=== PATIENT | female | born 1980 | race Caucasian/White ===

== ENCOUNTER 2019-06-28 08:07 | Outpatient (CLI) | payer OTHER ==
[2019-06-28 08:33] LABS: BASOPHILS # (AUTO) 0.1 10^3/uL (0.0-0.1); BASOPHILS % (AUTO) 0.6 %; EOSINOPHILS # (AUTO) 0.2 10^3/uL (0.0-0.7); EOSINOPHILS % (AUTO) 2.6 %; HGB - HEMOGLOBIN 13.9 g/dL (12.0-16.0); LYMPHOCYTES # (AUTO) 3.1 10^3/uL (1.5-3.5); LYMPHOCYTES % (AUTO) 34.2 %; MEAN CORPUSCULAR HEMOGLOBIN 30.3 pg (27.0-31.0); MEAN CORPUSCULAR HGB CONC 33.3 g/dL (32.0-36.0); MEAN CORPUSCULAR VOLUME 91.3 fL (81.0-99.0); MONOCYTES # (AUTO) 0.6 10^3/uL (0.0-1.0); MONOCYTES % (AUTO) 6.2 %; NEUTROPHILS % (AUTO) 55.7 %; PLT - PLATELET COUNT 344 10^3/uL (130-450); RED BLOOD COUNT 4.58 10^6/uL (4.20-5.40); RED CELL DISTRIBUTION WIDTH 12.3 % (12.0-15.0)
[2019-06-28 08:45] LABS: HCG UR QUAL NEGATIVE
== END 2019-06-28 08:08 | disposition home or self-care (01) ==
LOC: LAB 08:07
PROVIDERS: ATTEND Obstetrics & Gynecology
DX: N84.0 Polyp of corpus uteri (principal); Z01.812 Encounter for preprocedural laboratory examination
CPT/HCPCS: 36415; 81025; 85025; 86850; 86900; 86901

== ENCOUNTER 2019-06-29 07:25 | Day surgery (SDC) | payer OTHER ==
[2019-06-29] MEDS ORDERED: ACETAMINOPHEN 1,000 MG/100 ML 100 ML IV ONE ×2 (07:26→09:17)
[2019-06-29] MEDS ORDERED: fentaNYL 100 MCG/2 ML VIAL IVP ONE (07:26)
[2019-06-29] MEDS ORDERED: MIDAZOLAM 2 MG/2 ML VIAL IVP ONE (07:26)
[2019-06-29] MEDS ORDERED: PROPOFOL 200 MG/20 ML VIAL IVP ONE (07:26)
[2019-06-29] MEDS ORDERED: KETOROLAC 30 MG/ML VIAL IVP ONE (07:26)
[2019-06-29] MEDS ORDERED: DEXAMETHASONE 4 MG/ML VIAL IVP ONE (07:26)
[2019-06-29] MEDS ORDERED: LACTATED RINGERS 1,000 ML IV ONE (07:37)
--- NOTE | 2019-06-29 08:01 | ANESTHESIA ---
Pre-Anesthesia VS, & Labs - Diagnosis uterine polyp - Procedure myosure hysteroscopy, polypectomy Vital Signs: Temp Pulse Resp BP Pulse Ox 37 C 92 20 130/90 H 97 06/29/19 07:37 06/29/19 07:37 06/29/19 07:37 06/29/19 07:37 06/29/19 07:37 Height 5 ft 2.2 in Weight (kg) 84 kg - NPO >8 hours - Is Patient ?: No Home Medications and Allergies Home Medications: Ambulatory Orders ALPRAZolam [Alprazolam] 0.5 mg PO PRN 06/22/19 Amitriptyline [Elavil] 10 mg PO HS PRN 06/22/19 Cholecalciferol (Vitamin D3) [Vitamin D3] 1,000 unit PO 06/22/19 Desogestrel-Ethinyl Estradiol [Apri 28 Day Tablet] 1 each PO 06/22/19 Lisinopril 60 mg PO 06/22/19 Vitamin B Complex 1 each PO 06/22/19 ALPRAZolam [Alprazolam] 0.5 mg PO PRN 06/22/19 Amitriptyline [Elavil] 10 mg PO HS PRN 06/22/19 Calcium Carbonate [Tums (Calcium Carbonate 500mg)] 500 mg PO PRN 06/22/19 Cholecalciferol (Vitamin D3) [Vitamin D3] 1,000 unit PO 06/22/19 Desogestrel-Ethinyl Estradiol [Apri 28 Day Tablet] 1 each PO 06/22/19 Lisinopril 60 mg PO 06/22/19 Vitamin B Complex 1 each PO 06/22/19 Allergies/Adverse Reactions: Allergies Allergy/AdvReac Type Severity Reaction Status Date / Time adhesive tape Allergy Rash Verified 06/29/19 07:57 dill oil Allergy Itching Verified 06/22/19 14:46 Anes History & Medical History - Anesthetic History Anesthesia Complications: reports: No previous complications - Medical History Cardiovascular: reports: Hypertension Pulmonary: reports: None Gastrointestinal: reports: GERD Urinary: reports: Other Musculoskeletal: reports: None Endocrine/Autoimmune: reports: None Skin: reports: None - Surgical History General: Colonoscopy, EGD Eyes Ears Nose Throat (EENT): Rhinoplasty, Tonsil/Adenoidectomy Exam General: Alert Dental: WNL Mouth Opening: Greater than 4 Fingerbreadths Mallampati classification: I Respiratory: Lungs clear Cardiovascular: Regular rate, Normal S1, Normal S2 Plan Anesthesia Type: General Consent for Procedure(s) Verified and Reviewed: Yes Code Status: Attempt Resuscitation ASA classification: 2-Mild systemic disease Is this case an emergency?: No
[2019-06-29] MEDS ORDERED: LIDOCAINE-MPF 1% 30 ML VIAL ONE (09:11)
[2019-06-29] MEDS ORDERED: VASOPRESSIN 20 UNIT/ML VIAL ONE (09:11)
[2019-06-29] MEDS ORDERED: SILVER NITRATE APPLICATOR TOP ONE (09:52)
[2019-06-29] MEDS ORDERED: LIDOCAINE 1% 10 ML MDV SUBQ ONE (09:56)
[2019-06-29] MEDS ORDERED: HYDROmorphone 0.5 MG/0.5 ML SYRINGE IVP PRN (10:02)
[2019-06-29] MEDS ORDERED: ONDANSETRON 4 MG/2 ML VIAL IVP PRN (10:02)
[2019-06-29] MEDS ORDERED: oxyCODONE 5 MG TABLET PO PRN (10:02)
--- NOTE | 2019-06-29 10:07 | OPERATIVE REPORT ---
Operative Report - General Procedure Date: 06/29/19 Planned Procedure: diagnostic hysteroscopy, possible polypectomy, dilation and curettage Pre-Op Diagnosis: abnormal uterine bleeding, suspected polyp Procedure Performed: diagnostic hysteroscopy, dilation and curettage Post Op Diagnosis: abnormal uterine bleeding, no polyp identified - Procedure Note Primary Surgeon: Sujata Woodard Anesthesia Technique: General LMA Pathology: endometrial curettings IV Fluids (mL): 500 Estimated Blood Loss (mL): 5 Urine Output (mL): 0 Indications: abnormal uterine bleeding, polyp suspected on ultrasound Findings: Normal uterine cavity with some lush endometrium anteriorly but no identified mass or polyp. Scant tissue returned on curretting. Fluid deficit 225 mL Complications: none - Other Other Information/Narrative: After informed consent was assured, the patient was taken to the operating room where anesthesia was induced. Pt was placed in high dorsal lithotomy. An exam under anesthesia was performed which revealed a small anteverted uterus. The patient was prepped and draped in the usual sterile fashion. Hysteroscopy equipment was set up and white balanced. A surgical timeout was performed. A speculum was inserted into the vagina, and a tenaculum was placed on the anterior lip of the cervix. 1% lidocaine was used to perform a paracervical block with injection at 2, 4, 8 and 10 o'clock into the cervicovaginal junction. Hanks dilators were used to dilate the cervix up to 15 slovak. The hysteroscope light was turned on and fluids were run through. The hysteroscope was passed through the cervix into the endometrial cavity, which was gently distended with fluid. The cavity appeared smooth and regular, with normal bilateral ostia, no mass or defect. Endometrium was lush anteriorly but no polyp was seen. The hysteroscope was withdrawn. Fluid deficit noted at 225 mL. A small curette was inserted to the fundus and withdrawn along all surfaces of the endometrial cavity, returning scant tissue. The tenaculum was removed from the cervix; silver nitrate was applied to the tenaculum sites with good hemostasis observed. All instruments were removed from the vagina, and a repeat bimanual exam revealed a small firm uterus and no instruments in the vaginal vault. All counts were correct. The pt was taken to PACU in stable condition.
[2019-06-29 11:07] VITALS: BP 126/81
== END 2019-06-29 07:26 | disposition home or self-care (01) ==
LOC: SDS 07:25
PROVIDERS: ATTEND Obstetrics & Gynecology
PROC: 0UJD8ZZ Inspection of Uterus and Cervix, Via Natural or Artificial Opening Endoscopic (ICD-10-PCS; 2019-06-29)
PROC: 0UDB7ZZ Extraction of Endometrium, Via Natural or Artificial Opening (ICD-10-PCS; principal; 2019-06-29 08:30)
DX: N84.0 Polyp of corpus uteri (principal); N92.1 Excessive and frequent menstruation with irregular cycle; I10 Essential (primary) hypertension; Z79.899 Other long term (current) drug therapy
CPT/HCPCS: 85025

== ENCOUNTER 2019-12-03 13:22 | Emergency (ER) | payer OTHER ==
[2019-12-03 15:39] VITALS: BP 130/100
--- NOTE | 2019-12-03 15:57 | ED Physician Documentation ---
PD HPI WOUND RECHECK - Stated complaint Stated Complaint: L ARM SWELLING - Chief complaint Chief Complaint: Wound - Histroy obtained from History obtained from: Patient - History of Present Illness Location: Left Uppper Extremity (Bug bite 2 nights ago and now with a swollen area of pain on the left arm) Review of Systems Constitutional: reports: Reviewed and negative. denies: Fever, Chills Throat: reports: Reviewed and negative Cardiac: reports: Reviewed and negative PD PAST MEDICAL HISTORY - Past Medical History Cardiovascular: Hypertension Respiratory: None Endocrine/Autoimmune: None GI: GERD : Other HEENT: None Psych: None Musculoskeletal: None Derm: None - Past Surgical History General: Colonoscopy, EGD HEENT: Rhinoplasty, Tonsil/Adenoidectomy - Present Medications Home Medications: Ambulatory Orders Medication Instructions Recorded Confirmed ALPRAZolam [Alprazolam] 0.5 mg PO DAILY 06/22/19 06/29/19 Amitriptyline [Elavil] 10 mg PO HS PRN 06/22/19 06/22/19 Cholecalciferol (Vitamin D3) 2,000 unit PO DAILY 06/22/19 06/29/19 [Vitamin D3] Desogestrel-Ethinyl Estradiol 1 each PO DAILY 06/22/19 06/29/19 [Apri 28 Day Tablet] Vitamin B Complex 1 each PO DAILY 06/22/19 06/29/19 lisinopriL [Lisinopril] 60 mg PO DAILY 06/22/19 06/29/19 Cephalexin [Keflex] 500 mg PO Q6H #28 capsule 12/03/19 Triamcinolone 0.1% Oint [Kenalog 1 gm TOP BID #2 tube 12/03/19 0.1% Oint] - Allergies Allergies/Adverse Reactions: Allergies Allergy/AdvReac Type Severity Reaction Status Date / Time adhesive tape Allergy Rash Verified 12/03/19 13:29 dill oil Allergy Itching Verified 12/03/19 13:29 PD ED PE NORMAL - Vitals Vital signs reviewed: Yes - General General: Alert and oriented X 3, No acute distress - Extremities Extremities: Other (There is an area of cellulitis versus localized bug reaction to the medial antecubital fossa on the left arm measuring about 10 x 5 cm) - Neuro Neuro: Alert and oriented X 3, Normal speech Results - Vitals Vitals: Vital Signs - 24 hr 12/03/19 12/03/19 13:29 15:39 Temperature 37.4 C 37.1 C Heart Rate 110 H 113 H Respiratory 17 16 Rate Blood Pressure 149/95 H 130/100 H O2 Saturation 98 99 Oxygen O2 Source Room air Departure - Departure Disposition: 01 Home, Self Care Clinical Impression: Left arm cellulitis Condition: Good Record reviewed to determine appropriate education?: Yes Instructions: ED Infec Skin Cellulitis Prescriptions: Cephalexin [Keflex] 500 mg PO Q6H #28 capsule Triamcinolone 0.1% Oint [Kenalog 0.1% Oint] 1 gm TOP BID #2 tube Comments: Return if you develop a fever or not better in the next couple of days. Anytime for worsening symptoms.
== END 2019-12-03 15:59 | disposition home or self-care (01) ==
LOC: ED 13:22
DX: L03.114 Cellulitis of left upper limb (principal); I10 Essential (primary) hypertension
CPT/HCPCS: 99282; 99283

== ENCOUNTER 2020-04-17 09:54 | Outpatient (CLI) | payer OTHER ==
[2020-04-17 10:38] LABS: BASOPHILS # (AUTO) 0.1 10^3/uL (0.0-0.1); BASOPHILS % (AUTO) 0.6 %; EOSINOPHILS # (AUTO) 0.2 10^3/uL (0.0-0.7); EOSINOPHILS % (AUTO) 1.9 %; LYMPHOCYTES # (AUTO) 2.9 10^3/uL (1.5-3.5); LYMPHOCYTES % (AUTO) 30.8 %; MEAN CORPUSCULAR HEMOGLOBIN 29.7 pg (27.0-31.0); MEAN CORPUSCULAR HGB CONC 32.5 g/dL (32.0-36.0); MEAN CORPUSCULAR VOLUME 91.3 fL (81.0-99.0); MEAN PLATELET VOLUME 9.7 fL (7.9-10.8); MONOCYTES # (AUTO) 0.5 10^3/uL (0.0-1.0); MONOCYTES % (AUTO) 5.3 %; NEUTROPHILS # (AUTO) 5.7 10^3/uL (1.5-6.6); NEUTROPHILS % (AUTO) 60.9 %; PLT - PLATELET COUNT 337 10^3/uL (130-450); RED BLOOD COUNT 4.72 10^6/uL (4.20-5.40); RED CELL DISTRIBUTION WIDTH 12.2 % (12.0-15.0); WHITE BLOOD COUNT 9.3 x10^3/uL (4.8-10.8)
[2020-04-17 10:42] LABS: HCG UR QUAL NEGATIVE
== END 2020-04-17 09:55 | disposition home or self-care (01) ==
LOC: LAB 09:54
PROVIDERS: ATTEND Obstetrics & Gynecology
DX: Z01.818 Encounter for other preprocedural examination (principal); N84.0 Polyp of corpus uteri; N92.6 Irregular menstruation, unspecified; Z20.828 Contact with and (suspected) exposure to other viral communicable diseases
CPT/HCPCS: 36415; 81025; 85025

== ENCOUNTER 2020-04-20 06:12 | Day surgery (SDC) | payer OTHER ==
[2020-04-20] MEDS ORDERED: LACTATED RINGERS 1,000 ML IV ONE ×2 (06:27→10:58)
[2020-04-20] MEDS ORDERED: GABAPENTIN 400 MG CAPSULE ONE (06:30)
[2020-04-20] MEDS ORDERED: CELECOXIB 100 MG CAPSULE PO ONE (06:31)
[2020-04-20] MEDS ORDERED: CEFAZOLIN SODIUM IN 0.9 % NACL 2 GM/100 ML BAG IV ONE (06:31)
[2020-04-20] MEDS ORDERED: ACETAMINOPHEN 1,000 MG/100 ML 100 ML IV ONE ×2 (06:31→08:17)
[2020-04-20] MEDS ORDERED: PHENAZOPYRIDINE 100 MG TABLET PO ONE (06:34)
[2020-04-20 06:56] LABS: HCG UR QUAL NEGATIVE
--- NOTE | 2020-04-20 07:23 | ANESTHESIA ---
Pre-Anesthesia VS, & Labs - Diagnosis Endometrial polyp, irregular menses - Procedure LAVH, possible open Vital Signs: Temp Pulse Resp BP Pulse Ox 36.6 C 94 16 144/95 H 98 04/20/20 06:43 04/20/20 06:43 04/20/20 06:43 04/20/20 06:43 04/20/20 06:43 Height: 5 ft 2.5 in Weight (kg): 82.7 kg Body Mass Index: 32.8 BMI Classification: Obese - NPO >8 hours Last Fluid Intake: sips w/am meds - Is Patient ?: No - Lab Results Current Lab Results: Laboratory Tests 04/20/20 07:07: POC Whole Bld Glucose 90 Lab results reviewed: Yes Home Medications and Allergies Home Medications: Ambulatory Orders Cetirizine [ZyrTEC] 10 mg PO DAILY 04/19/20 Cyclobenzaprine [Flexeril] 10 mg PO TID PRN 04/19/20 Omeprazole 20 mg PO DAILY 04/19/20 SUMAtriptan succinate [Sumatriptan Succinate] 100 mg PO ONCE PRN 04/19/20 ALPRAZolam [Alprazolam] 0.5 mg PO DAILY PRN 06/22/19 Cholecalciferol (Vitamin D3) [Vitamin D3] 5,000 unit PO DAILY 06/22/19 Desogestrel-Ethinyl Estradiol [Apri 28 Day Tablet] 1 each PO DAILY 06/22/19 Vitamin B Complex 1 each PO DAILY 06/22/19 lisinopriL [Lisinopril] 60 mg PO DAILY 06/22/19 Cetirizine [ZyrTEC] 10 mg PO DAILY 04/19/20 Cyclobenzaprine [Flexeril] 10 mg PO TID PRN 04/19/20 Omeprazole 20 mg PO DAILY 04/19/20 SUMAtriptan succinate [Sumatriptan Succinate] 100 mg PO ONCE PRN 04/19/20 Allergies/Adverse Reactions: Allergies Allergy/AdvReac Type Severity Reaction Status Date / Time adhesive tape Allergy Rash Verified 04/20/20 06:52 dill oil Allergy Itching Verified 04/20/20 06:52 mosquito Allergy cellulitis, Uncoded 04/20/20 06:52 welts Anes History & Medical History - Anesthetic History Anesthesia Complications: reports: No previous complications Family history of Anesthesia Complications: Denies Family history of Malignant Hyperthermia: Denies - Medical History Cardiovascular: reports: Hypertension Pulmonary: reports: Asthma (as a child, resolved) Gastrointestinal: reports: GERD, Other Urinary: reports: None Musculoskeletal: reports: None Endocrine/Autoimmune: reports: None Skin: reports: None - Surgical History General: Colonoscopy, EGD, Other Eyes Ears Nose Throat (EENT): Rhinoplasty, Tonsil/Adenoidectomy Gynecologic: Dilation and currettage, Other Exam General: Alert, Oriented x3, Cooperative Dental: WNL Mouth Opening: Greater than 4 Fingerbreadths Neck Mobility: Normal Mallampati classification: I Thyromental Distance: greater than 6 cm Respiratory: Lungs clear, Normal breath sounds Cardiovascular: Regular rate Neurological: Normal speech Mental/Cognitive Status: Alert/Oriented X3, Normal for patient Cognitive Status: Within normal limits Plan Anesthesia Type: General, Transverse Abdominis Plane (TAP) Block (possible) Consent for Procedure(s) Verified and Reviewed: Yes Code Status: Attempt Resuscitation ASA classification: 2-Mild systemic disease Is this case an emergency?: No
[2020-04-20] MEDS ORDERED: LIDOCAINE 1%-EPI 1:100000 20 ML MDV ONE (08:07)
[2020-04-20] MEDS ORDERED: PROPOFOL 200 MG/20 ML VIAL IVP ONE (08:17)
[2020-04-20] MEDS ORDERED: SUCCINYLCHOLINE 200 MG/10 ML VIAL IVP ONE (08:17)
[2020-04-20] MEDS ORDERED: METOCLOPRAMIDE 10 MG/2 ML VIAL IVP ONE (08:17)
[2020-04-20] MEDS ORDERED: KETAMINE 500 MG/10 ML VIAL IVP ONE (08:17)
[2020-04-20] MEDS ORDERED: ONDANSETRON 4 MG/2 ML VIAL IVP ONE (08:17)
[2020-04-20] MEDS ORDERED: KETOROLAC 30 MG/ML VIAL IVP ONE (08:17)
[2020-04-20] MEDS ORDERED: fentaNYL 100 MCG/2 ML VIAL IVP ONE (08:17)
[2020-04-20] MEDS ORDERED: LIDOCAINE-MPF 2% 5 ML VIAL IM ONE (08:17)
[2020-04-20] MEDS ORDERED: DEXAMETHASONE 4 MG/ML VIAL IVP ONE (08:17)
[2020-04-20] MEDS ORDERED: MIDAZOLAM 2 MG/2 ML VIAL IVP ONE (08:17)
[2020-04-20] MEDS ORDERED: ROCURONIUM 50 MG/5 ML VIAL IVP ONE (08:17)
[2020-04-20] MEDS ORDERED: MAGNESIUM SULFATE 5 GM/10 ML VIAL IV ONE (08:17)
[2020-04-20] MEDS ORDERED: HYDROmorphone 1 MG/ML CARPUJECT IVP ONE (08:17)
[2020-04-20] MEDS ORDERED: LIDOCAINE 1%-EPI 1:100000 20 ML MDV SUBQ ONE ×2 (08:26)
[2020-04-20] MEDS ORDERED: BUPIVACAINE 0.25%-EPI 1:200000 PF 10 ML VIAL SUBQ ONE ×2 (09:16)
[2020-04-20] MEDS ORDERED: BUPIVACAINE 0.25%-EPI 1:200000 PF 30 ML VIAL ONE (09:19)
[2020-04-20] MEDS ORDERED: MORPHINE 2 MG/ML CARPUJECT IVP PRN (09:41)
[2020-04-20] MEDS ORDERED: NALOXONE 0.4 MG/ML VIAL IVP PRN (09:41)
[2020-04-20] MEDS ORDERED: HYDROmorphone 0.5 MG/0.5 ML SYRINGE IVP PRN ×2 (09:41→10:58)
[2020-04-20] MEDS ORDERED: fentaNYL 100 MCG/2 ML VIAL IVP PRN (09:41)
[2020-04-20] MEDS ORDERED: ONDANSETRON 4 MG/2 ML VIAL IVP PRN ×2 (09:41→10:58)
[2020-04-20] MEDS ORDERED: METOCLOPRAMIDE 10 MG/2 ML VIAL IVP PRN (09:41)
[2020-04-20] MEDS ORDERED: ATROPINE ABBOJECT 1 MG/10 ML SYRINGE IVP PRN (09:41)
[2020-04-20] MEDS ORDERED: ePHEDrine 50 MG/ML VIAL IVP PRN (09:41)
[2020-04-20] MEDS ORDERED: LACTATED RINGERS 1,000 ML IV SCH (10:00)
[2020-04-20] MEDS ORDERED: LORazepam 2 MG/ML VIAL IVP PRN (10:58)
[2020-04-20] MEDS ORDERED: KETOROLAC 30 MG/ML VIAL IVP PRN (11:00)
--- NOTE | 2020-04-20 11:03 | OPERATIVE REPORT ---
Operative Report - General Procedure Date: 04/20/20 Planned Procedure: TLH, BS, CYSTO Pre-Op Diagnosis: MENORRHAGIA DYSMENORRHEA Procedure Performed: TLH, BS, CYSTO Post Op Diagnosis: SAME - Procedure Note Primary Surgeon: Antoni Serrano MD Secondary Surgeon: Tessa Sagastume MD Anesthesia Provider: Ania Quiroz CRNA Anesthesia Technique: General ET tube Pathology: Uterus with both tubes IV Fluids (mL): 1,700 Estimated Blood Loss (mL): 15 Urine Output (mL): 250 Complications: None
--- NOTE | 2020-04-20 12:11 | ANESTHESIA POST OP EVALUATION ---
Anesthesia Post Eval - Post Anesthesia Eval Vitals: Last Vital Signs Temp 36.5 C 04/20/20 12:00 Pulse 99 04/20/20 12:00 Resp 15 04/20/20 12:00 BP 117/67 04/20/20 12:00 Pulse Ox 98 04/20/20 12:00 CV Function Including HR & BP: positive: Stable Pain Control: positive: Satisfactory Nausea & Vomiting: positive: Negative Mental Status: positive: Baseline Respiratory Status: Airway Patent Hydration Status: Satisfactory Anesthesia Complications: positive: None
[2020-04-20] MEDS: oxyCODONE 5 MG TABLET PO PRN ×3 (12:33→20:24)
[2020-04-20] MEDS ORDERED: PROMETHAZINE INJ 25 MG in SODIUM CHLORIDE 0.9% 50 ML IV PRN (17:11)
[2020-04-20] MEDS: PROCHLORPERAZINE 10 MG/2 ML VIAL IVP PRN (17:23)
[2020-04-21] MEDS: oxyCODONE 5 MG TABLET PO PRN ×3 (00:38→09:47)
[2020-04-21] MEDS: PROCHLORPERAZINE 10 MG/2 ML VIAL IVP PRN (00:40)
--- NOTE | 2020-04-21 07:51 | OPERATIVE REPORT ---
DATE OF SERVICE: 04/20/2020 Physician: Antoni Serrano MD PREOPERATIVE DIAGNOSES 1. Menorrhagia. 2. Dysmenorrhea. POSTOPERATIVE DIAGNOSES 1. Menorrhagia. 2. Dysmenorrhea. PROCEDURE: Total laparoscopic hysterectomy with bilateral salpingectomy and cystoscopy. SURGEON: Antoni Serrano MD ANTICHECKING IRON WORKER: Dr. Bernadette Sagastume. ANESTHESIA PROVIDER: Ania Quiroz. ANESTHETIC: General via endotracheal tube. IV FLUIDS: 1700 mL ESTIMATED BLOOD LOSS: 15 mL URINE OUTPUT: 250 mL FINDINGS: Upon entering the abdominal cavity, the uterus appeared globally enlarged. There is no evidence of adhesions. The ureters were visualized. The appendix also appeared to be normal at this time. DESCRIPTION OF PROCEDURE: Following adequate endotracheal anesthesia, patient was placed in dorsal lithotomy position [facility]. At this point, a pelvic examination under anesthesia was performed. The uterus was not able to be palpated secondary to abdominal wall thickness. She was then prepped and draped in the usual fashion. Speculum placed in the vagina, cervix visualized and grasped with a single-tooth tenaculum. It was then sounded to 9 cm, then dilated up to size 9 mm dilator. A size 3.5 cm digital printer operator uterine manipulator was placed. At this point, the concrete boom pump operator's gloves were changed, and a stab wound was made in subumbilical region with a #11 blade following local anesthesia with 0.25% Marcaine with epinephrine. At this point, a 5 mm trocar and sheath were placed atraumatically on the first pass. There was no evidence of any bleeding at the site of insertion. Two additional ports were placed, both in the left and right lower quadrants following local anesthesia and is scheduled for a skin incision with a #11 blade. At this point, the pelvis was inspected with the aforementioned findings. The appendix appeared to be normal. Ureters were both visualized bilaterally and appeared to show evidence of good peristalsis. At this point, the left fallopian tube was grasped and the mesosalpinx was cauterized and transected utilizing the LigaSure. This was carried all the way down to the uteroovarian ligament, which was likewise doubly cauterized and transected with the LigaSure. Then the round ligament was doubly cauterized, transected with LigaSure. The broad ligament was cauterized and transected, and the anterior leaf was opened, and a bladder flap was developed across the lower uterine segment. The uterine vessels on the right-hand side were visualized, cauterized, and transected with the LigaSure. The mesosalpinx was cauterized and transected with the Ligasure. This was carried all the way past the uteroovarian ligament, round ligament, as well as down to the uterine vessels on the left-hand side. These were visualized, skeletonized, and then cauterized and transected with LigaSure. There was evidence of good hemostasis the entire process. At this point, the digital printer operator was able to be palpated through the upper vagina. A Harmonic scalpel was then used to amputate the uterus from the apex of the vagina. Prior to closing the vaginal cuff, the uterus was removed through the vagina, and a bulb syringe was placed to create a pneumoperitoneum. At this point, the cuff was noted to be free of any bleeding, and it was then closed utilizing a 0 Vlock suture. There was evidence of good hemostasis. The cul-de-sac was irrigated free, there was no evidence of further clots. The right lower quadrant incision where the Endo Stitch had been placed was closed utilizing [id number] of 0 Vicryl. The incisions themselves were then closed using Monocryl subcuticular, and Mastisol was utilized. Cystoscopy was performed in which both ureter openings were visualized, and there were excellent jets of Pyridium-stained urine going out through both ureteral orifices. Patient tolerated the procedure well and was taken to recovery in stable condition. Sponge and needle counts were correct. Throughout the entire procedure, Dr. Sagastume's assistance with retraction, cauterization, as well as transection was intimately important to the procedure. TD: 04/20/2020 11:24 ABHIJEET
--- NOTE | 2020-04-21 08:42 | PROVIDER PROGRESS NOTE ---
Subjective - General Procedure Date: 04/20/20 Post Op Days: 1 Procedure Performed: TLH BS, Cysto - Review of Systems Wound/Incisions: positive: Dressing dry and intact General: positive: No symptoms (Pain 3/10. More painful at the right incision.) Objective - Patient Data Reviewed Vital Signs: Yes Vital Signs: Vital Signs x48h Temp Pulse Resp BP Pulse Ox 04/21/20 07:46 36.8 C 95 19 136/80 H 95 04/21/20 06:20 36.8 C 04/21/20 05:48 90 18 131/75 H 95 Weight: Weight 04/19/20 04/20/20 04/21/20 23:59 23:59 23:59 Weight (kg) 82.7 kg Intake & Output: Intake and Output Totals x24h 04/19/20 04/20/20 04/21/20 23:59 23:59 23:59 Output Total 265 900 Balance -265 -900 - Lab Results Other Lab Results: Lab Results x24hrs 04/20/20 Range/Units 07:50 Blood Type O POSITIVE Antibody Screen NEGATIVE - Current Medications Current Medications: Current Medications Generic Name Dose Route Start Last Admin Trade Name Freq PRN Reason Stop Dose Admin Ondansetron HCl 4 mg 04/20/20 10:58 04/20/20 15:46 Zofran Inj IVP 4 mg Q6HR PRN Administration Nausea / Vomiting Oxycodone HCl 5 mg 04/20/20 10:58 04/21/20 05:45 Roxicodone PO 5 mg Q4HR PRN Administration PAIN Prochlorperazine Edisylate 10 mg 04/20/20 17:11 04/21/20 00:40 Compazine Inj IVP 10 mg Q6HR PRN Administration Nausea / Vomiting - Physical Exam Wound/Incisions: positive: Dressing dry and intact General Appearance: positive: No acute distress, Alert Respiratory: positive: Chest non-tender, No respiratory distress, Breath sounds nml Cardiovascular: positive: Regular rate & rhythm, No murmur, No gallop Abdomen: positive: Nml bowel sounds, No distention Back: negative: CVA tenderness (R), CVA tenderness (L) Skin: positive: Color nml, No rash, Warm, Dry Extremities: negative: Calf tenderness, Salvador's sign/cords Impression/Plan - Problem List Problem List: POD # 1 excellent progress Send home Discharge medicaion Oxycodone Motrin Colace clarita RTC 1 week
[2020-04-21 12:32] VITALS: BP 138/82
== END 2020-04-21 13:35 | disposition home or self-care (01) ==
LOC: SDS 06:12 → MS2 12:05 → SDS 04-21 13:35
PROVIDERS: ATTEND Obstetrics & Gynecology
PROC: 0UB74ZZ Excision of Bilateral Fallopian Tubes, Percutaneous Endoscopic Approach (ICD-10-PCS; 2020-04-20)
PROC: 0UT94ZZ Resection of Uterus, Percutaneous Endoscopic Approach (ICD-10-PCS; principal; 2020-04-20 07:30)
DX: N84.0 Polyp of corpus uteri (principal); N87.9 Dysplasia of cervix uteri, unspecified; N80.0 Endometriosis of uterus; I10 Essential (primary) hypertension; K21.9 Gastro-esophageal reflux disease without esophagitis; F41.9 Anxiety disorder, unspecified; F32.9 Major depressive disorder, single episode, unspecified
CPT/HCPCS: 58571; 81025; 86850; 86900; 86901; A9270; J0131; J0330; J0690; J1170; J2765; J7120